=== PATIENT | male | born 1995 | race Caucasian/White ===

== ENCOUNTER 2017-02-27 14:32 | Emergency (ER) | payer SELFPAY ==
--- NOTE | 2017-02-27 14:59 | ER Document Report ---
ED General - General Chief Complaint: Post Surgical Pain Stated Complaint: POST OP COMPLICATION Time Seen by Provider: 02/27/17 14:54 Mode of Arrival: Ambulatory Information source: Patient Notes: Patient is a 21-year-old white male who presents with open wound incision status post pilonidal cyst. He states this surgery was done about 3 months ago in [place]. He had some initial wound dehiscence where he did follow up with a surgeon in [place] who treated with supportive care. The patient states since he has moved here to [place] he has not stopped moving around or bending over and is causing the wound to remain open. He does endorse some associated pain and drainage from the wound. He states his girlfriend has been doing local wound care but they are concerned is getting infected. He does state he has been on Keflex and Bactrim but has recently finished his antibiotics. He denies any fever, chills, redness to the area. TRAVEL OUTSIDE OF THE [place] IN LAST 30 DAYS: No - Related Data Allergies/Adverse Reactions: No Known Allergies Allergy (Verified 02/27/17 14:33) Past Medical History - General Information source: Patient - Social History Smoking Status: Current Every Day Smoker Family History: None Review of Systems - Review of Systems Constitutional: See HPI EENT: No symptoms reported Cardiovascular: No symptoms reported Respiratory: No symptoms reported Gastrointestinal: No symptoms reported Genitourinary: No symptoms reported Male Genitourinary: No symptoms reported Musculoskeletal: No symptoms reported Skin: See HPI Hematologic/Lymphatic: No symptoms reported Neurological/Psychological: No symptoms reported Physical Exam - Vital signs Vitals: Temp Pulse Resp BP Pulse Ox 98.7 F 97 20 128/78 H 97 02/27/17 14:38 02/27/17 14:38 02/27/17 14:38 02/27/17 14:38 02/27/17 14:38 - Notes Notes: PHYSICAL EXAM: CONSTITUTIONAL: Alert and oriented, well-appearing and in no acute distress. HENT: Normocephalic, atraumatic. Trachea midline. Uvula midline. Moist mucous membranes. EYES: Pupils equal round and reactive to light, EOM intact. Sclera anicteric, conjunctiva are normal. No entrapment. NECK: supple without lymphadenopathy. No midline tenderness or paraspinous muscle spasms. HEART: Regular rate and rhythm without murmurs. LUNGS: CTAB and equal. No wheezes, rales or rhonchi. GI: Normactive bowel sounds. Nontender, non-distended. No organomegaly. no CVAT. BACK: nontender, no paraspinous spasm, 5+/5 strengths, DTRs 2+, SLR -. EXTREMITIES: Normal range of motion, no pitting edema. No cyanosis. Cap Refill < 3 seconds. NEURO: Cranial nerves grossly intact. Normal sensory/motor exams. PSYCH: Normal mood, normal affect. SKIN: Warm and dry. Normal turgor. 3 inch open incision in gluteal cleft without purulent discharge or marianela bleeding. No surrounding erythema. Course - Re-evaluation Re-evalutation: 02/27/17 16:10 Patient seen and examined. patient is alert and oriented, standing by bedside. Speaking in full sentences without difficulty, non-toxic in appearance. patient is afebrile with normal HR. 3 inch open incision to gluteal cleft without evidence of abscess. Due to duration since surgical procedure, did not feel comfortable re-suturing due to increased risk of infection. Repacked wound with iodoform gauze and will give patient script for abx and pain medication. Discussed local wound care and advised f/u with wound clinic. At this time, will discharge with return precautions and follow-up recommendations. Verbal discharge instructions given at the bedside and opportunity for questions given. Medication warnings reviewed. Patient is in agreement with this plan and has verbalized understanding of return precautions and the need for primary care follow-up in the next 24-72 hours. - Vital Signs Vital signs: Temp Pulse Resp BP Pulse Ox 98.7 F 97 20 128/78 H 97 02/27/17 14:38 02/27/17 14:38 02/27/17 14:38 02/27/17 14:38 02/27/17 14:38 Discharge - Discharge Clinical Impression: Postoperative wound dehiscence Qualifiers: Encounter type: initial encounter Qualified Code(s): T81.31XA - Disruption of external operation (surgical) wound, not elsewhere classified, initial encounter Condition: Stable Disposition: HOME, SELF-CARE Additional Instructions: [facility] [address] [place] [id number] Wound Care After I&D 1. If an antibiotic is prescribed please try to take on a regular schedule as this may help resolve your infection faster. 2. Pain will usually be very well managed with [id number]-[id number] medications such as Tylenol, Advil, or Aleve. If a narcotic prescription is used you cannot take this and drive or operate dangerous machinery while on this medication. 3. After your shower and the packing has been removed you should gently clean the abscess cavity with 2-3 Q-tips and a solution of saline and peroxide that was sent home with you. If you did not receive this solution, you can mix peroxide and water as the peroxide will clean even tap water of any bacteria. Insert the Q-tip into the solution and then gently into the abscess cavity to keep the skin edges apart, gently swabbing using a total of 2-3 Q-tips. This helps to keep the skin open to allow the abscess to heal from the inside out. If the skin heals too fast the abscess will reoccur as the skin closes over an open hole. Repack with damp gauze with saline and peroxide. No wet part should touch the skin edge. Cover the site with a gauze dressing and tape at first after daily wound care. When the drainage is less you may switch over to band aids if more convenient. 4. When only the skin edges are left to heal you may clean the surface with the solution on a cotton ball. Follow up with the provider of your choice in one to two weeks. If your symptoms worsen, return to emergency department. Prescriptions: Tramadol HCl [Ultram] 50 mg PO Q8HP PRN #10 tablet PRN Reason: Cephalexin Monohydrate [Keflex 500 mg Capsule] 500 mg PO Q6H 10 Days capsule Sulfamethoxazole/Trimethoprim [Bactrim Ds Tablet] 1 tab PO BID 10 Days tablet Forms: Elevated Blood Pressure
[2017-02-27 16:24] VITALS: BP 131/77
== END 2017-02-27 16:24 | disposition home or self-care (01) ==
LOC: ER 14:32
DX: T81.31XA Disruption of external operation (surgical) wound, not elsewhere classified, initial encounter (principal); Y83.8 Other surgical procedures as the cause of abnormal reaction of the patient, or of later complication, without mention of misadventure at the time of the procedure; F17.200 Nicotine dependence, unspecified, uncomplicated
CPT/HCPCS: 99283

== ENCOUNTER 2017-08-01 14:38 | Emergency (ER) | payer MEDICAID ==
[2017-08-01] MEDS ORDERED: IBUPROFEN 800 MG TABLET PO ONE (16:32)
--- NOTE | 2017-08-01 16:40 | ER Document Report ---
ED General - General Chief Complaint: Leg Pain Stated Complaint: LEFT LEG AND KNEE PAIN Time Seen by Provider: 08/01/17 16:23 Mode of Arrival: Ambulatory Information source: Patient TRAVEL OUTSIDE OF THE [place] IN LAST 30 DAYS: No - HPI Notes: Patient is a 21-year-old male presents with report of left lateral knee pain the patient has had since he was bending forward on the knee about 1 week ago cleaning something and felt something pop in the left lateral aspect of the knee and since that time his reported pain with almost a sensation of tingling in addition to the pain in the lateral aspect of the knee. Pain is worse with motion. This been no swelling. Patient denies any back pain or hip pain. No chest pain or difficulty breathing. - Related Data Allergies/Adverse Reactions: No Known Allergies Allergy (Verified 08/01/17 14:42) Past Medical History - General Information source: Patient - Social History Smoking Status: Never Smoker Chew tobacco use (# tins/day): No Frequency of alcohol use: None Drug Abuse: None Family History: None Patient has suicidal ideation: No Patient has homicidal ideation: No Renal/ Medical History: Denies: Hx Peritoneal Dialysis Psychiatric Medical History: Reports: Hx Depression Review of Systems - Review of Systems Notes: REVIEW OF SYSTEMS: CONSTITUTIONAL : Denies fever, chills, or sweats. Denies recent illness. CARDIOVASCULAR: Denies chest pain. Denies ankle edema. MUSCULOSKELETAL: Denies back or neck pain or stiffness. HEMATOLOGIC : Denies easy bruising or bleeding. LYMPHATIC: Denies swollen, enlarged glands. NEUROLOGICAL: Denies dizziness or lightheadedness. Denies headache. Denies weakness or loss of use of either side. Denies problems with speech. Denies seizures ALL OTHER SYSTEMS REVIEWED AND NEGATIVE. Dictation was performed using [employer] recognition software -: Yes ROS unobtainable due to patient's medical condition Physical Exam - Vital signs Vitals: Temp Pulse Resp BP Pulse Ox 99.4 F 99 16 129/78 H 96 08/01/17 14:49 08/01/17 14:49 08/01/17 14:49 08/01/17 14:49 08/01/17 14:49 - Notes Notes: General no obvious distress. Back no CVA tenderness or paraspinal tenderness or erythema. Examination of the left lower extremity shows a nonfocal knee and ankle and foot exam, but the patient describes pain through the left lateral knee, and he describes pain with ligamentous testing through the area, although ligamentous structures appear intact. Negative Nancy's. Negative Alyson's test. Good range of motion. No anterior drawer sound. Distally, the patient is neurovascularly intact with good distal sensation and capillary refill. He describes a subjective numbness right over the area. No proximal erythema or adenopathy. Course - Re-evaluation Re-evalutation: 08/01/17 16:44 Patient was given ibuprofen. 08/01/17 18:45 X-ray negative. The patient did have a antalgic gait left knee. Left knee immobilizer and crutches given. Orthopedic follow-up in 2 weeks. No evidence for fracture, but I cannot exclude ligamentous disruption or meniscus injury. 08/01/17 18:46 - Vital Signs Vital signs: Temp Pulse Resp BP Pulse Ox 99.4 F 99 16 129/78 H 96 08/01/17 14:49 08/01/17 14:49 08/01/17 14:49 08/01/17 14:49 08/01/17 14:49 Discharge - Discharge Clinical Impression: Knee sprain Qualifiers: Encounter type: initial encounter Involved ligament of knee: other ligament Laterality: left Qualified Code(s): S83.8X2A - Sprain of other specified parts of left knee, initial encounter Condition: Stable Disposition: HOME, SELF-CARE Instructions: Use of Crutches ([facility]), Knee Immobilizing Splint ([facility]), Sprained Knee ([facility]) Additional Instructions: If pain persists after 2 weeks, then follow-up with orthopedics DR. Anderson> Prescriptions: Ibuprofen 800 mg PO Q8HP PRN #30 tablet PRN Reason: Referrals: JOVANNY ANDERSON DO [ACTIVE STAFF] - 08/18/17
--- NOTE | 2017-08-01 17:06 | RADIOLOGY REPORT (SQ) ---
EXAM DESCRIPTION: KNEE LEFT 3 VIEWS COMPLETED DATE/TIME: 08/01/2017 4:54 pm REASON FOR STUDY: left knee pain COMPARISON: None. NUMBER OF VIEWS: Three views. TECHNIQUE: AP, lateral, and sunrise patella radiographic images acquired of the left knee. LIMITATIONS: None. FINDINGS: MINERALIZATION: Normal. BONES: No acute fracture or dislocation. No worrisome bone lesions. JOINT: No effusion. SOFT TISSUES: No soft tissue swelling. No radio-opaque foreign body. OTHER: No other significant finding. IMPRESSION: NEGATIVE STUDY OF THE LEFT KNEE. NO RADIOGRAPHIC EVIDENCE OF ACUTE INJURY. TECHNICAL DOCUMENTATION: JOB ID: [id number] [employer]- All Rights Reserved Reading location - IP/workstation name: [email or web address]
[2017-08-01 19:01] VITALS: BP 132/88
== END 2017-08-01 19:00 | disposition home or self-care (01) ==
LOC: ER 14:38
DX: S83.8X2A Sprain of other specified parts of left knee, initial encounter (principal); X58.XXXA Exposure to other specified factors, initial encounter
CPT/HCPCS: 99283; 73562; L1830; J3490

== ENCOUNTER → 2017-08-07 | Outpatient (CLI) | payer MEDICAID ==
--- NOTE | 2017-08-07 12:31 | RADIOLOGY REPORT (SQ) ---
EXAM DESCRIPTION: PELVIS AP COMPLETED DATE/TIME: 08/07/2017 9:08 am REASON FOR STUDY: PILONIDAL CYST WITH ABSCESS (L05.01) L05.01 PILONIDAL CYST WITH ABSCESS COMPARISON: None. NUMBER OF VIEWS: One view TECHNIQUE: AP Pelvis LIMITATIONS: None. FINDINGS: MINERALIZATION: Normal. HIPS: No acute fracture or dislocation. No worrisome bone lesions. PELVIS AND SACRUM: No acute fracture or dislocation. No worrisome bone lesions. PUBIS AND ISCHIUM: No acute fracture. LOWER LUMBAR SPINE: No significant findings as visualized. No spina bifida. SOFT TISSUES: No findings. OTHER: No other significant finding. IMPRESSION: NEGATIVE STUDY OF THE PELVIS. TECHNICAL DOCUMENTATION: JOB ID: [id number] [employer]- All Rights Reserved Reading location - IP/workstation name: [email or web address]
== END ==
LOC: RAD 08:54
PROVIDERS: ATTEND Nurse Practitioner
DX: L05.01 Pilonidal cyst with abscess (principal)
CPT/HCPCS: 72170

== ENCOUNTER → 2017-08-14 | Outpatient (CLI) | payer MEDICAID ==
--- NOTE | 2017-08-14 11:11 | RADIOLOGY REPORT (SQ) ---
EXAM DESCRIPTION: CT ABD/PELVIS WITH IV ORAL COMPLETED DATE/TIME: 08/14/2017 10:07 am REASON FOR STUDY: PILONIDAL CYST WITH ABSCESS (L05.01) L05.01 PILONIDAL CYST WITH ABSCESS COMPARISON: None. TECHNIQUE: CT scan of the abdomen and pelvis performed using helical scanning technique with dynamic intravenous contrast injection. Oral contrast. Images reviewed with lung, soft tissue, and bone win dows. Reconstructed coronal and sagittal MPR images reviewed. Delayed images for evaluation of the ur inary system also acquired. All images stored on PACS. All CT scanners at this facility use dose modulation, iterative reconstruction, and/or weight based d osing when appropriate to reduce radiation dose to as low as reasonably achievable (ALARA). [facility]: Dose Right [facility]: CareDose [facility]: Dose Right [facility]: Teradose 4D [facility]: TechForward CONTRAST TYPE AND DOSE: contrast/concentration: Isovue 370.00 mg/ml; Total Contrast Delivered: 100.0 ml; Total Saline Delivered: 72.0 ml RENAL FUNCTION: None required. The patient is less than 50 years old. RADIATION DOSE: CT Rad equipment meets quality standard of care and radiation dose reduction techniq ues were employed. CTDIvol: 19.1 - 21.3 mGy. DLP: 2398 mGy-cm.. LIMITATIONS: None. FINDINGS: LOWER CHEST: No significant findings. No nodules or infiltrates. LIVER: Normal size. No masses. No dilated ducts. SPLEEN: Splenomegaly. PANCREAS: No masses. No significant calcifications. No adjacent inflammation or peripancreatic fluid collections. Pancreatic duct not dilated. GALLBLADDER: No identified stones by CT criteria. No inflammatory changes to suggest cholecystitis. ADRENAL GLANDS: No significant masses or asymmetry. RIGHT KIDNEY AND URETER: No solid masses. Several tiny nonobstructing intrarenal calculi are presen t. No hydronephrosis or hydroureter. LEFT KIDNEY AND URETER: No solid masses. No significant calcifications. No hydronephrosis or hydr oureter. AORTA AND VESSELS: No aneurysm. No dissection. Renal arteries, SMA, celiac without stenosis. RETROPERITONEUM: No retroperitoneal adenopathy, hemorrhage or masses. BOWEL AND PERITONEAL CAVITY: No masses or inflammatory changes. No free fluid or peritoneal masses. APPENDIX: Normal. PELVIS: No mass. No free fluid. Normal bladder. ABDOMINAL WALL: No masses. No hernias. BONES: No significant or acute findings. OTHER: There is an open sinus extending obliquely inferiorly from the dorsal skin surface almost to t he coccyx. IMPRESSION: 1. Nonobstructing right intrarenal calculi. 2. There is a sinus track as described. No fluid collection is seen to suggest an abscess. TECHNICAL DOCUMENTATION: JOB ID: [id number] Quality ID # [id number]: Final reports with documentation of one or more dose reduction techniques (e.g., Au tomated exposure control, adjustment of the mA and/or kV according to patient size, use of iterative reconstruction technique) 2010 [email or web address]- All Rights Reserved Reading location - IP/workstation name: [email or web address]
== END ==
LOC: RAD 09:40
PROVIDERS: ATTEND Nurse Practitioner
DX: L05.01 Pilonidal cyst with abscess (principal)
CPT/HCPCS: 74177